=== PATIENT | female | born 1990 | race Caucasian/White ===

== ENCOUNTER 2021-05-25 06:51 | Emergency (ER) | payer OTHER ==
[~2021-05-25] VITALS: Ht 170.2 cm; Wt 67.1 kg
[2021-05-25 06:54] VITALS: BP 111/72
[2021-05-25] MEDS ORDERED: BACTRIM DS TAB1 EACH PO (07:40)
== END 2021-05-25 07:45 | disposition home or self-care (01) ==
LOC: ER 06:51
DX: L03.113 Cellulitis of right upper limb (principal); L02.413 Cutaneous abscess of right upper limb